=== PATIENT | female | born 1965 | race Caucasian/White ===

== ENCOUNTER 2017-11-08 23:35 | Emergency (ER) | payer OTHER ==
--- NOTE | 2017-11-08 23:45 | PDOC ---
History of Present Illness - General Chief Complaint: Pain, Acute Stated Complaint: SCIATICA Time Seen by Provider: 11/08/17 23:37 - History of Present Illness Initial Comments: This 52-year-old woman presents with a history of right lower back pain radiating to the right buttock and to the right leg for the last few days. The patient states that she had onset of the lower leg discomfort on , November 04; the patient states that she has been lifting heavy material while helping her parents. Patient did not fall or have any discrete trauma prior to onset of pain. Over the next few days pain worsened and radiated into the right leg. No history of groin numbness/urinary or bowel movement changes. She communicated with her PMD by telephone over the weekend and she received prescription for steroid taper and muscle relaxant (cyclobenzaprine). Meanwhile , the patient has been taking ibuprofen for pain. Tonight, the patient had worsening pain over her right buttock and anterior thigh. No history of new trauma. She was advised to come to the ER for further treatment Past History - Past Medical History Allergies/Adverse Reactions: Allergies Allergy/AdvReac Type Severity Reaction Status Date / Time Penicillins Allergy Verified 11/08/17 23:37 Home Medications: Ambulatory Orders Cyclobenzaprine HCl [Flexeril -] 10 mg PO HS 11/08/17 Escitalopram Oxalate [Lexapro -] 10 mg PO DAILY 11/08/17 Methylprednisolone [Medrol Dose Khanh] 4 mg PO ASDIR 11/08/17 Review of Systems - Review of Systems Able to Perform ROS?: Yes Comments:: 12 point review of systems is negative except for what is noted in the history of present illness *Physical Exam - Physical Exam Comments: GENERAL: Adult female, in moderate distress secondary to right buttock/like pain HEAD: Normal with no signs of trauma. EYES: PERRLA, EOMI, sclera anicteric, conjunctiva clear. ENT: Ears normal, nares patent, oropharynx clear without exudates. Dry mucous membranes. NECK: Normal range of motion, supple without lymphadenopathy, JVD, or masses. LUNGS: Breath sounds equal, clear to auscultation bilaterally. No wheezes, and no crackles. HEART:Regular rate and rhythm, normal S1 and S2 without murmur, rub or gallop. ABDOMEN:.normal bowel sounds No guarding,tenderness or rebound.No masses No distention. EXTREMITIES: Normal range of motion, no edema. No clubbing or cyanosis. Pain with straight leg raising at 20 on the right side; mild tenderness of the anterior right thigh No tenderness/edema of the right posterior thigh/popliteal NEUROLOGICAL: Cranial nerves II through XII grossly intact. Normal speech. No focal neurological deficits. MUSCULOSKELETAL: Back non-tender to palpation, no CVA tenderness SKIN: Warm, Dry, normal turgor, no rashes or lesions noted. Progress Note - Progress Note Progress Note: Patient given a milligram of Dilaudid IM for her right sided sciatica. Patient has partial response of her pain after Dilaudid 1 mg IM Although cyclobenzaprine was prescribed by her PMD, she continues to have muscle spasm in her right thigh as demonstrated by the tenderness of the anterior thigh. Valium 2 mg by mouth will given for muscle relaxation. Patient feels markedly better after Valium 2 mgPO Patient will be discharged with follow-up by her PMD within the next 48 hours. *DC/Admit/Observation/Transfer Diagnosis at time of Disposition: Back pain with sciatica - Discharge Dispostion Disposition: HOME Condition at time of disposition: Stable - Referrals - Patient Instructions Printed Discharge Instructions: DI for Back Pain With Sciatica Additional Instructions: Continue steroid taper pack/muscle relaxant as previously prescribed Follow-up with your general doctor as scheduled Return to ER if you have severe, persistent pain or develop numbness/weakness in leg - Post Discharge Activity
[2017-11-08] MEDS ORDERED: HYDROmorphone HCL CARPU-JECT 1 MG/1 ML DISP.SYRIN IVPUSH ONE (23:55)
[2017-11-08] MEDS ORDERED: HYDROmorphone HCL CARPU-JECT 1 MG/1 ML DISP.SYRIN IM ONE (23:56)
[2017-11-08 23:59] VITALS: BP 137/82; PULSE 71; TEMP 98.1; BMI 23.9
[2017-11-09] MEDS ORDERED: HYDROmorphone HCL CARPU-JECT 1 MG/1 ML DISP.SYRIN ONE (00:05)
[2017-11-09] MEDS ORDERED: diazePAM 5 MG TABLET PO ONE (00:47)
[2017-11-09] MEDS ORDERED: diazePAM 2 MG TABLET ONE (01:01)
[2017-11-09] MEDS ORDERED: diazePAM 2 MG TABLET PO ONE (01:01)
== END 2017-11-09 01:11 | disposition home or self-care (01) ==
LOC: FER 23:35
PROC: 3E023NZ Introduction of Analgesics, Hypnotics, Sedatives into Muscle, Percutaneous Approach (ICD-10-PCS; principal; 2017-11-08)
DX: M54.9 Dorsalgia, unspecified (principal); M54.30 Sciatica, unspecified side
CPT/HCPCS: 99281-25